=== PATIENT | female | born 1990 | race Caucasian/White ===

== ENCOUNTER 2021-05-29 13:48 | Inpatient (IN) | payer MEDICAID, SELFPAY ==
[2021-05-29 13:48] VITALS: BP 105/84; PULSE 130; RESP 18; TEMP 36.2; O2SAT 100; BMI 18.5
--- NOTE | 2021-05-29 14:11 | EDS_ITS ---
HPI History of Present Illness Chief Complaint: Substance Abuse Informant: patient Narrative Narrative: Patient presents requesting help with detox. She has been working with [employer] and states that she is supposed to go there after she is discharged from the hospital. She has been using fentanyl, heroin, and cocaine. She reports increased use the last 3 weeks and typically smokes. She states she will occasionally snort drugs. Last use was at noon yesterday. Patient states that she feels shaky and nauseated. She feels very warm. She does report some mild cough with some wheezing. No fever or chills. Patient did go through detox less than 6 months ago at another facility. [facility] Medical History Asthma Kidney stone Allergy/AdvReac Type Severity Reaction Status Date / Time amoxicillin Allergy Hives Verified 05/29/21 13:51 morphine Allergy Other Verified 05/29/21 13:51 Social History (Updated 05/29/21 @ 14:[address] Val Trammell MD) Smoking Status: Current every day smoker tobacco type: cigarettes alcohol intake: current alcohol intake frequency: holidays/special occasions only substance use type: crack/cocaine, heroin and opiates ROS ROS ED Constitutional Constitutional ED: Denies chills or fever(s) Eyes Eyes: Denies change in vision ENT ENT ED: Denies rhinorrhea Cardiovascular Cardiovascular: Denies chest pain or palpitations Respiratory/Chest Respiratory/Chest: Reports cough and other Details: Wheezing ; Denies dyspnea Gastrointestinal Gastrointestinal: Reports nausea; Denies abdominal pain or vomiting Genitourinary Genitourinary ED: Denies dysuria Integumentary Reports rash Neurologic Neurologic: Denies headache(s) Allergic/Immunologic Allergic/Immunologic ED: Denies urticaria EXAM Physical Exam Const Vital Signs: 05/29/21 13:48 Temperature 97.2 F L Temperature Source Temporal Pulse Rate 130 H Respiratory Rate 18 Blood Pressure 105/84 H Blood Pressure Mean 91 Pulse Ox 100 Oxygen Delivery Method Room Air Positive well nourished and well developed General Appearance ED: well developed HEENT Reports moist mucous membranes Eyes PERRL and EOMs intact bilaterally Neck supple Chest Wall inspection of chest normal and palpation of chest normal Resp normal respiratory effort Auscultation: wheezes throughout Cardio Rate: tachycardic GI soft to palpation and non-tender Neuro oriented x3 Sensorium / Orientation: alert Skin Skin Narrative: Scattered scabbed lesions noted on the abdomen and left upper extremity along with the chin. No sign of secondary infection. MDM MDM MDM Narrative Medical decision making narrative: Patient agreed to rules of addiction medicine program. Lab work obtained. Patient given small dose of Ativan to help with anxiety as well as albuterol MDI. Lab Data Attestation: I reviewed the patient's lab results. Labs: Laboratory Results - last 24 hr 05/29/21 05/29/21 05/29/21 14:25 14:25 14:25 WBC 6.2 RBC 4.85 Hgb 14.4 Hct 44.7 MCV 92.2 MCH 29.7 MCHC 32.2 RDW Std Deviation 43.5 RDW Coeff of Satish 12.9 Plt Count 480 H MPV 8.9 Immature Gran % (Auto) 0.200 Neut % (Auto) 71.3 H Lymph % (Auto) 19.5 Nicholas % (Auto) 6.5 Eos % (Auto) 1.5 Baso % (Auto) 1.0 Absolute Neuts (auto) 4.4 Absolute Lymphs (auto) 1.20 Nucleated RBC % 0 Sodium 140 Potassium 4.1 Chloride 109 H Carbon Dioxide 27.0 Anion Gap 4 L BUN 11 Creatinine 0.71 Estim Creat Clear Calc 79.36 Est GFR (MDRD) Af Amer 125 Est GFR (MDRD) Non-Af 103 BUN/Creatinine Ratio 15.5 Glucose 137 H Calcium 9.1 Total Bilirubin 0.20 AST 17 ALT 22 Alkaline Phosphatase 88 Total Protein 7.6 Albumin 3.4 Globulin 4.2 Albumin/Globulin Ratio 0.8 L Serum , Qual Ethyl Alcohol < 3.0 05/29/21 14:25 WBC RBC Hgb Hct MCV MCH MCHC RDW Std Deviation RDW Coeff of Satish Plt Count MPV Immature Gran % (Auto) Neut % (Auto) Lymph % (Auto) Nicholas % (Auto) Eos % (Auto) Baso % (Auto) Absolute Neuts (auto) Absolute Lymphs (auto) Nucleated RBC % Sodium Potassium Chloride Carbon Dioxide Anion Gap BUN Creatinine Estim Creat Clear Calc Est GFR (MDRD) Af Amer Est GFR (MDRD) Non-Af BUN/Creatinine Ratio Glucose Calcium Total Bilirubin AST ALT Alkaline Phosphatase Total Protein Albumin Globulin Albumin/Globulin Ratio Serum , Qual NEGATIVE Ethyl Alcohol Treatment and Re-Evaluation Comments:: Patient's labs largely unremarkable. Alcohol level negative. Tox screen still pending but will speak with hospitalist regarding admission. Covid test negative. Discharge Plan Triage Chief Complaint: Substance Abuse ED Provider: Val Trammell Dx/Rx/DC Orders Clinical Impression: Desire for detoxification Referrals: LADY AMES [Other] Disposition Disposition: Acute Care Hospital [facility]
[2021-05-29 14:33] LABS: Absolute Neutrophil Count 4.4 X10^3/uL (2.0-7.7); Basophil# 0.06 X10^3/uL; Eosinophil# 0.09 X10^3/uL; Eosinophils% 1.5 % (0-5); Hematocrit 44.7 % (37-47); Hemoglobin 14.4 g/dL (12.0-15.0); Lymphocyte % 19.5 % (19-41); Mean Corp Hgb Conc 32.2 g/dL (32-36); Mean Corpuscular Hgb 29.7 pg (27.0-32.0); Mean Corpuscular Volume 92.2 fL (81-99); Mean Platelet Vol. 8.9 fl (6.2-12.0); Monocyte% 6.5 % (0-10); NRBC Flagged by Analyzer 0 % (0-5); Neutrophil # 4.39 X10^3/uL (2.7-7.7); Neutrophil % 71.3 % (47-70); Platelet Count 480 K/mm3 (150-450); RBC Distribution Width CV 12.9 % (11.6-14.6); RBC Distribution Width SD 43.5 fl (35.1-43.9); Red Blood Count 4.85 M/mm3 (4.2-5.4); White Blood Count 6.2 K/mm3 (4.4-11.0)
[2021-05-29 14:44] LABS: Internal QC Validated? YES +Cl - CLEAR BKGD; Pregnancy, Serum, hCG Quali. NEGATIVE Negative
[2021-05-29] MEDS: LORazepam 2 MG/ML Syringe 0.5 MG IV (14:45)
[2021-05-29 14:52] LABS: ALB/GLOB Ratio 0.8 RATIO (0.9-2.4); AST(SGOT) 17 U/L (15-37); Alanine Aminotransfer ALT/SGPT 22 U/L (13-56); Albumin, Serum 3.4 g/dL (3.2-5.0); Alkaline Phosphatase 88 U/L (45-117); Anion Gap 4 (5-15); BUN 11 mg/dL (7-18); BUN/Creat Ratio 15.5 RATIO (10-20); Calcium,Total 9.1 mg/dL (8.5-10.1); Chloride 109 mmol/L (98-107); Creatinine, Serum 0.71 mg/dL (0.55-1.02); EST Glomerular Filtration Rate 103 mL/min (>60); Est Glom Filt Rate - Afr Amer 125 mL/min (>60); Estimated Creatinine Clearance 79.36 ml/min; Globulin 4.2 g/dL (2.2-4.2); Glucose 137 mg/dL (74-106); Potassium 4.1 mmol/L (3.5-5.1); Protein, Total 7.6 g/dL (6.4-8.2); Sodium Level 140 mmol/L (136-145)
[2021-05-29 15:03] LABS: Alcohol, Blood (Medical)-Serum < 3.0 mg/dL
--- NOTE | 2021-05-29 15:24 | ED.RN ---
REVIEWED CONTRACT WITH PT. VERBALIZES UNDERSTANDING AND SIGNED AGREEMENT. PT REPORTS ATIVAN EFFECTIVE.
--- NOTE | 2021-05-29 15:32 | HP.PCM.HOS_ITS ---
HPI - General General Date of Admission: 05/29/21 HPI Narrative REGINO GIFFORD, is a 30 F who presents with a complaint of acute opioid withdrawal. She has been working with [employer] and was sent in for acute opioid withdrawal. She has been using fentanyl, heroin and cocaine. She has been using heavily in the last 3 weeks prior to admission, and usually smokes heroin and fentanyl as well as cocaine, with occasional snorting. Last use was noon on the day before admission. She admitted to feeling shaky and nauseated also. Patient was very jittery and anxious during my review. She sais she had been through detox previously ~ 6 months ago. REview of systems ws otherwise negative . Vitals were BP of 105/84, IA of 130, RR of 18 and temp of 97.2F. CBC was significant for platelets of 480 and chemistry was unremarkable. She is being admitted to be managed for acute opioid withdrawal. [facility] Medical History Asthma Kidney stone Allergy/AdvReac Type Severity Reaction Status Date / Time amoxicillin Allergy Hives Verified 05/29/21 13:51 morphine Allergy Other Verified 05/29/21 13:51 Social History (Updated 05/29/21 @ 14:[address] Val Trammell MD) Smoking Status: Current every day smoker tobacco type: cigarettes alcohol intake: current alcohol intake frequency: holidays/special occasions only substance use type: crack/cocaine, heroin and opiates ROS Constitutional Constitutional: Denies anorexia, chills, fatigue, fever(s), malaise or weakness Eyes Eyes: Denies change in vision ENT HEENT: Denies headache(s) or hearing loss Cardiovascular Cardiovascular: Reports rapid heart rate; Denies chest pain, dyspnea on exertion, edema, lightheadedness, orthopnea or palpitations Respiratory/Chest Respiratory/Chest: Reports cough, dyspnea, shortness of breath at rest and shortness of breath with exertion; Denies hemoptysis or productive cough Gastrointestinal Gastrointestinal: Denies abdominal pain, constipation or diarrhea Musculoskeletal Musculoskeletal: Denies arthralgias Neurologic Neurologic: Denies confusion Psychiatric Psychiatric: Denies anxiety or depression Endocrine Endocrinology: Denies change in body appearance Hematologic/Lymphatic Hematologic/Lymphatic: Denies anemia Vital Signs Vital Signs Vital Signs: 05/29/21 13:48 Temperature 97.2 F L Temperature Source Temporal Pulse Rate 130 H Respiratory Rate 18 Blood Pressure 105/84 H Blood Pressure Mean 91 Pulse Ox 100 Oxygen Delivery Method Room Air Weight Weight: 94 lb 12.78 oz Body Mass Index (BMI) 18.5 Physical Exam Const alert and oriented x3 Constitutional Narrative: very anxious and jittery. General Appearance: cooperative HEENT normocephalic, head/scalp atraumatic, hearing grossly normal bilaterally and moist oral mucous membranes Eyes PERRL, EOMs intact bilaterally and conjunctivae normal Neck no lymphadenopathy Resp Resp Narrative: diminished breath sounds bibasally, no wheezes or crackles. On room air Cardio regular rhythm, S1 normal heart sound, S2 normal heart sound and no murmurs Cardio Narrative: tachycardic GI normal to inspection, nondistended, normoactive bowel sounds, soft to palpation, non-tender and non-distended Extremity normal to inspection, full ROM and no clubbing, cyanosis or edema Peripheral Pulses: Yes pulses 2+ throughout Skin no rashes or lesions noted Neuro oriented x3, CN's II-XII intact bilaterally and moves all extremities Sensorium / Orientation: awake and alert Psych Psych Narrative: patient very anxious, restless Results Lab / Micro Data Result Diagrams: 05/29/21 14:25 05/29/21 14:25 Labs: Laboratory Results - last 24 hr 05/29/21 14:25: WBC 6.2, RBC 4.85, Hgb 14.4, Hct 44.7, MCV 92.2, MCH 29.7, MCHC 32.2, RDW Std Deviation 43.5, RDW Coeff of Satish 12.9, Plt Count 480 H, MPV 8.9, Immature Gran % (Auto) 0.200, Neut % (Auto) 71.3 H, Lymph % (Auto) 19.5, [place] % (Auto) 6.5, Eos % (Auto) 1.5, Baso % (Auto) 1.0, Absolute Neuts (auto) 4.4, Absolute Lymphs (auto) 1.20, Nucleated RBC % 0 05/29/21 14:25: Sodium 140, Potassium 4.1, Chloride 109 H, Carbon Dioxide 27.0, Anion Gap 4 L, BUN 11, Creatinine 0.71, Estim Creat Clear Calc 79.36, Est GFR (MDRD) Af Amer 125, Est GFR (MDRD) Non-Af 103, BUN/Creatinine Ratio 15.5, Glucose 137 H, Calcium 9.1, Total Bilirubin 0.20, AST 17, ALT 22, Alkaline Phosphatase 88, Total Protein 7.6, Albumin 3.4, Globulin 4.2, Albumin/Globulin Ratio 0.8 L 05/29/21 14:25: Ethyl Alcohol < 3.0 05/29/21 14:25: Serum , Qual NEGATIVE 05/29/21 15:17: Ur Drug Screen Comment Micro: Microbiology 05/29/21 14:25 Nasal Secretion SARS-CoV-2 Antigen (Rapid) - Final Assessment & Plan Assessment/Plan (1) Opioid withdrawal: PLAN: #Acute opioid withdrawal * admit to med surg with telemetry, o/a of tachycardia * start on opioid withdrawal protocol with buprenorphine * monitor COWS score * adjunctive meds for symptomatic treatment * #Sinus tachycardia * likely due to withdrawal from opioids * will monitor for now. I expected to improve once she is started on opioid withdrawal protocol with buprenorphine and receives adjunctive medications for symptomatic relief. * DVT prophylaxis: low risk. Encourage ambulation. Charges/Coding Visit Charges Inpatient E&M: 87036 Init Hosp L3
[2021-05-29 16:00] VITALS: BMI 18.5
[2021-05-29 16:01] LABS: Amphetamine Urine VISTA NEGATIVE (<1000 ng/mL); Barbiturate Urine VISTA NEGATIVE (< 200 ng/mL); Benzodiazepine Urine VISTA NEGATIVE (< 200 ng/mL); Cocaine Urine VISTA POSITIVE (< 300 ng/mL); Ecstacy Urine VISTA NEGATIVE (< 500 ng/mL); Methadone Urine VISTA NEGATIVE (< 300 ng/mL); PCP Urine VISTA NEGATIVE (< 25 ng/mL); THC Urine VISTA POSITIVE (< 50 ng/mL); Vista UDS pH Range 7
[2021-05-29 16:02] VITALS: BP 120/78; PULSE 74; RESP 14; TEMP 36.1; O2SAT 98
[2021-05-29 16:14] VITALS: BP 112/70; PULSE 109; RESP 18; TEMP 36.6; O2SAT 100
--- NOTE | 2021-05-29 16:26 | CM.ED ---
SOCIAL WORK Reason for Consult: Substance Abuse-requesting detox Patient reported use of fentanyl, heroin, and cocaine. Last use was yesterday, 05/28/21 at noon. Patient reported already connected with [facility]. Flor, Addiction Therapist notified of admission. Plan: DAHLIA Han, HEAD INSULATION BOARD SAW OPERATOR, BOX BLANK MACHINE OPERATOR
[2021-05-29] MEDS: Gabapentin 300 MG Capsule PO (16:40)
[2021-05-29] MEDS: Buprenorphine HCl 2 MG TAB.SUBL SL ×2 (16:40→23:57)
[2021-05-29] MEDS: Dicyclomine 10 MG Capsule 20 MG PO (16:40)
[2021-05-29 17:45] VITALS: BP 111/61; PULSE 89; RESP 18; TEMP 36.6; O2SAT 96
[2021-05-29] MEDS: cloNIDine HCl 0.1 MG Tablet PO (19:40)
[2021-05-29] MEDS: hydrOXYzine PAM 25 MG Capsule 50 MG PO (19:40)
[2021-05-29] MEDS: Methocarbamol 750 MG Tablet 1500 MG PO (19:44)
[2021-05-29 19:47] VITALS: BP 104/67; PULSE 89; RESP 15; TEMP 37.1; O2SAT 99
[2021-05-29 19:49] VITALS: RESP 15
[2021-05-29] MEDS: traZODone 100 MG Tablet PO (23:57)
[2021-05-30 00:01] VITALS: BP 87/32; PULSE 60; RESP 14; TEMP 36.7; O2SAT 99
[2021-05-30 03:47] VITALS: BP 104/62; PULSE 56; RESP 15; TEMP 36.8; O2SAT 95
[2021-05-30] MEDS: Buprenorphine HCl 2 MG TAB.SUBL SL ×2 (07:38→15:49)
[2021-05-30] MEDS: Methocarbamol 750 MG Tablet 1500 MG PO ×2 (07:42→17:19)
[2021-05-30 07:45] VITALS: BP 95/62; PULSE 69; RESP 15; TEMP 36.7; O2SAT 96
--- NOTE | 2021-05-30 10:00 | PCS.PANDOC ---
PANDEMIC DOCUMENTATION INITIATED: Date: 03/08/2021 Time: 190
--- NOTE | 2021-05-30 10:41 | ADDICTION ---
TW met with patient to complete ASAM, AUDIT, DUDIT, MSE, and DAWNA. Patient reported using 1/2g to 1g of fentanyl daily through smoking. Pt reported already being in contact with [facility] but is unsure who she spoke with. Pt stated she wants to admit to residential directly from detox. TW had pt sign DAWNA for [facility] and will inquire about the possbility of a bed-to-bed transfer. Once that plan is identified/set, transportation will be arranged and TW will fill out discharge plan.
[2021-05-30] MEDS: hydrOXYzine PAM 25 MG Capsule 50 MG PO ×2 (11:52→19:50)
--- NOTE | 2021-05-30 12:16 | PN.HOSP_ITS ---
Subjective Subjective Patient seen and examined. She had no active complaints. Patient however remains restless and irritable. Review of systems otherwise negative. Tachycardia has resolved, and she has otherwise remained hemodynamically stable. Objective Data Objective Data Vital Signs: Vital Signs Temp Pulse Resp BP Pulse Ox 98.1 F 69 15 95/62 96 05/30/21 07:45 05/30/21 07:45 05/30/21 07:45 05/30/21 07:45 05/30/21 07:45 Oxygen Delivery Method Room Air Weight: 94 lb 12.78 oz Body Mass Index (BMI) 18.5 Intake & Output: Intake and Output for Last 24 Hours 05/28/21 05/29/21 05/30/21 23:59 23:59 22:59 Intake Total 600 / 600 Balance 600 / 600 Lab / Micro Data Result Diagrams: 05/29/21 14:25 05/29/21 14:25 Labs: Laboratory Results - last 24 hr 05/29/21 14:25: WBC 6.2, RBC 4.85, Hgb 14.4, Hct 44.7, MCV 92.2, MCH 29.7, MCHC 32.2, RDW Std Deviation 43.5, RDW Coeff of Satish 12.9, Plt Count 480 H, MPV 8.9, Immature Gran % (Auto) 0.200, Neut % (Auto) 71.3 H, Lymph % (Auto) 19.5, [place] % (Auto) 6.5, Eos % (Auto) 1.5, Baso % (Auto) 1.0, Absolute Neuts (auto) 4.4, Absolute Lymphs (auto) 1.20, Nucleated RBC % 0 05/29/21 14:25: Sodium 140, Potassium 4.1, Chloride 109 H, Carbon Dioxide 27.0, Anion Gap 4 L, BUN 11, Creatinine 0.71, Estim Creat Clear Calc 79.36, Est GFR (MDRD) Af Amer 125, Est GFR (MDRD) Non-Af 103, BUN/Creatinine Ratio 15.5, Glucose 137 H, Calcium 9.1, Total Bilirubin 0.20, AST 17, ALT 22, Alkaline Phosphatase 88, Total Protein 7.6, Albumin 3.4, Globulin 4.2, Albumin/Globulin Ratio 0.8 L 05/29/21 14:25: Ethyl Alcohol < 3.0 05/29/21 14:25: Serum , Qual NEGATIVE 05/29/21 15:17: Urine Opiates Screen NEGATIVE, Urine Methadone Screen NEGATIVE, Ur Barbiturates Screen NEGATIVE, Ur Phencyclidine Scrn NEGATIVE, Ur Amphetamines Screen NEGATIVE, U Methamphetamin-MDMA NEGATIVE, U Benzodiazepines Scrn NEGATIVE, Urine Cocaine Screen POSITIVE H, U Cannabinoids Screen POSITIVE H, Ur Drug Screen Comment Micro: Microbiology 05/29/21 14:25 Nasal Secretion SARS-CoV-2 Antigen (Rapid) - Final Physical Exam Const alert and oriented x3 Constitutional Narrative: anxious and restless General Appearance: cooperative Exam Limitations: no limitations HEENT normocephalic, head/scalp atraumatic, hearing grossly normal bilaterally and moist oral mucous membranes Head and Scalp: normocephalic Eyes PERRL, EOMs intact bilaterally and conjunctivae normal Neck no lymphadenopathy Resp Resp Narrative: diminished breath sounds bibasally, no wheezes or crackles. On room air Cardio regular rhythm, S1 normal heart sound, S2 normal heart sound and no murmurs Cardio Narrative: tachycardic GI normal to inspection, nondistended, normoactive bowel sounds, soft to palpation, non-tender and non-distended Extremity normal to inspection, full ROM and no clubbing, cyanosis or edema Peripheral Pulses: Yes pulses 2+ throughout Skin no rashes or lesions noted Neuro oriented x3, CN's II-XII intact bilaterally and moves all extremities Sensorium / Orientation: awake and alert Psych affect normal Psych Narrative: patient restless, jittery Assessment & Plan Assessment/Plan (1) Opioid withdrawal: PLAN: #Acute opioid withdrawal * on opioid withdrawal protocol with buprenorphine * monitor COWS score * adjunctive meds for symptomatic treatment * #Sinus tachycardia * likely due to withdrawal from opioids * resolved. * DVT prophylaxis: low risk. Encourage ambulation. Disposition: for DC to [facility] once acute detox is complete Charges/Coding Visit Charges Inpatient E&M: 81237 Subs Hosp L2
[2021-05-30 13:45] VITALS: BP 95/57; PULSE 84; RESP 14; TEMP 36.9; O2SAT 97
[2021-05-30] MEDS: Gabapentin 300 MG Capsule PO (17:19)
--- NOTE | 2021-05-30 17:21 | NURSING ---
patient stated I feel hot and restless and have muscle spasms and anxious PRN Neurontin and methocarbamol given, will cont to monitor.
[2021-05-30 19:43] VITALS: BP 102/54; PULSE 68; RESP 18; TEMP 36.8; O2SAT 97
[2021-05-30] MEDS: traZODone 100 MG Tablet PO (19:50)
[2021-05-31] MEDS: Buprenorphine HCl 2 MG TAB.SUBL SL ×3 (00:29→17:00)
[2021-05-31] MEDS: Gabapentin 300 MG Capsule PO ×2 (02:15→12:13)
[2021-05-31] MEDS: Methocarbamol 750 MG Tablet 1500 MG PO ×3 (02:15→15:00)
[2021-05-31 02:23] VITALS: BP 106/66; PULSE 57; RESP 17; TEMP 36.9; O2SAT 97
[2021-05-31 09:00] VITALS: BP 110/91; PULSE 68; RESP 16; TEMP 36.9; O2SAT 97
[2021-05-31] MEDS: hydrOXYzine PAM 25 MG Capsule 50 MG PO ×2 (10:32→17:00)
--- NOTE | 2021-05-31 10:49 | ADDICTION ---
TW met with pt to provide supportive counseling and update of plan. TW informed PT she will be transported tomorrow morning, 06/01/2021 at 9AM to [facility]'s residential treatment center ([facility] by Kirill pitching coach. Pt complained of intense anxiety and feeling restless. TW provided word searches to help keep busy and informed attending nurse of anxiety and wanting nicotine gum.
[2021-05-31] MEDS: Nicotine Polacrilex 2 MG GUM PO ×3 (12:52→21:25)
[2021-05-31 14:59] VITALS: BP 101/69; PULSE 106; RESP 18; TEMP 36.8; O2SAT 98
--- NOTE | 2021-05-31 16:03 | PN.HOSP_ITS ---
Subjective Subjective Patient states overall she is feeling fairly well and not having any significant withdrawal symptoms. 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 She denies any use of methamphetamines and her talk screen is negative however we did discuss that she may have opiates that have been cut with other substances that are contributing to her anxiety and picking disorder. She also admits to tobacco abuse and the desire for nicotine gum. He has intolerance to patches. Objective Data Objective Data Vital Signs: Vital Signs Temp Pulse Resp BP Pulse Ox 98.3 F 106 H 18 101/69 98 05/31/21 14:59 05/31/21 14:59 05/31/21 14:59 05/31/21 14:59 05/31/21 14:59 Oxygen Delivery Method Room Air Weight: 43 kg Body Mass Index (BMI) 18.5 Intake & Output: Intake and Output for Last 24 Hours 05/30/21 05/30/21 05/31/21 00:59 23:59 23:59 Intake Total 850 / 850 Balance 850 / 850 Lab / Micro Data Result Diagrams: 05/29/21 14:25 05/29/21 14:25 Micro: Microbiology 05/29/21 14:25 Nasal Secretion SARS-CoV-2 Antigen (Rapid) - Final Physical Exam Const alert, oriented x3 and no apparent distress Constitutional Narrative: Thin young white female sitting up in bed, watching television, appears comfortable but slightly anxious Exam Limitations: no limitations Nutritional Appearance: thin HEENT head/scalp atraumatic and moist oral mucous membranes Head and Scalp: normocephalic Resp normal respiratory effort, no retractions and no use of accessory muscles Resp Narrative: Few scattered wheezes that clear with cough Auscultation: wheezes; Negative for crackles, rales or rhonchi Cardio regular rate, regular rhythm, S1 normal heart sound, S2 normal heart sound, no murmurs, no rub, no gallops, no clicks and no JVD GI normal to inspection, nondistended, normoactive bowel sounds, soft to palpation, non-tender and non-distended Extremity no clubbing, cyanosis or edema Peripheral Pulses: Yes pulses 2+ throughout Skin Skin Narrative: Multiple wounds all over her body with no signs of infection and consistent with picking disorder Neuro oriented x3, moves all extremities and no focal motor deficits Sensorium / Orientation: awake and alert Psych Psych Narrative: Appears anxious but affect is normal and eye contact is good Assessment & Plan Assessment/Plan (1) Desire for detoxification: (2) Opioid withdrawal: (3) Tobacco abuse: (4) Anxiety: PLAN: Acute opiate withdrawal -Continue buprenorphine taper -Continue supportive medications -Patient has been seen by addiction medicine and plan is for discharge to residential treatment tomorrow at 9 AM Tobacco abuse -Start nicotine gum -Recommend cessation Anxiety -Patient states that she was on treatment for anxiety in the past but had brandi ance issues -Recommend outpatient psychiatry follow-up -Anticipate she will get some treatment with regards to this at residential treatment -Patient states Vistaril is helping her at this time DVT prophylaxis -Early ambulation protocol
[2021-05-31 21:18] VITALS: BP 125/67; PULSE 83; RESP 15; TEMP 37.2; O2SAT 97
[2021-06-01] MEDS: Buprenorphine HCl 2 MG TAB.SUBL SL (03:51)
[2021-06-01] MEDS: hydrOXYzine PAM 25 MG Capsule 50 MG PO (03:51)
[2021-06-01 03:52] VITALS: BP 100/58; PULSE 63; RESP 15; TEMP 36.6; O2SAT 98
[2021-06-01 06:21] LABS: Absolute Lymphocyte Count 2.76 X10^3/uL (0.83-4.51); Absolute Neutrophil Count 2.9 X10^3/uL (2.0-7.7); Basophil# 0.05 X10^3/uL; Basophil% 0.8 % (0-1); Eosinophil# 0.22 X10^3/uL; Eosinophils% 3.3 % (0-5); Hematocrit 45.1 % (37-47); Hemoglobin 14.8 g/dL (12.0-15.0); Lymphocyte # 2.76 X10^3/ul (0.83-4.51); Lymphocyte % 41.9 % (19-41); Mean Corp Hgb Conc 32.8 g/dL (32-36); Mean Corpuscular Hgb 30.2 pg (27.0-32.0); Mean Platelet Vol. 9.2 fl (6.2-12.0); Monocyte# 0.66 X10^3/uL; NRBC Flagged by Analyzer 0 % (0-5); Neutrophil # 2.89 X10^3/uL (2.7-7.7); Neutrophil % 43.8 % (47-70); Platelet Count 447 K/mm3 (150-450); RBC Distribution Width SD 43.7 fl (35.1-43.9); White Blood Count 6.6 K/mm3 (4.4-11.0)
[2021-06-01 06:46] LABS: Anion Gap 6 (5-15); BUN 17 mg/dL (7-18); BUN/Creat Ratio 24.1 RATIO (10-20); Calcium,Total 9.2 mg/dL (8.5-10.1); Chloride 107 mmol/L (98-107); Creatinine, Serum 0.71 mg/dL (0.55-1.02); EST Glomerular Filtration Rate 104 mL/min (>60); Est Glom Filt Rate - Afr Amer 126 mL/min (>60); Estimated Creatinine Clearance 79.36 ml/min; Glucose 99 mg/dL (74-106); Potassium 4.6 mmol/L (3.5-5.1); Sodium Level 139 mmol/L (136-145)
--- NOTE | 2021-06-01 07:24 | PCM.DC.SUM ---
Providers Date of Admission: 05/29/21 Primary Care Physician: LADY AMES Reason For Visit: ACUTE OPIOID WITHDRAWAL Diagnosis Discharge Diagnosis (1) Desire for detoxification: Status: Acute (2) Opioid withdrawal: Status: Acute Code(s): F11.23 - Opioid dependence with withdrawal (3) Tobacco abuse: Status: Acute Code(s): Z72.0 - Tobacco use (4) Anxiety: Status: Acute Code(s): F41.9 - Anxiety disorder, unspecified Hospital Course Operations None Procedures None Summary of Care Provided Minutes Spent on Discharge: 26 Hospital Course: Analia Saleh is a 30-year-old female who presented to the emergency department [facility] on 05/29/2021 for acute opiate withdrawal. She reported on admission she had been working with [employer] and was sent in to the hospital for acute opiate withdrawal. She has a history of fentanyl, heroin, and cocaine use. She reported on admission that she had been using heavily the last 3 weeks prior to admission and had usually been smoking or snorting heroin and fentanyl as well as cocaine. Her last use was noon the day prior to admission. On admission she was complained of feeling shaky and nauseated. She had been through detox previously 6 months prior to admission. Her lab work was unremarkable on admission and she was admitted to the general medical floor for opiate detox. Toxicology screen was positive for cocaine and THC on admission. She was placed on a buprenorphine taper as well as supportive medication for symptoms. She was seen by addiction medicine and scheduled for discharge to residential facility on 06/01/2021 at 9 AM. During her stay she complained of nicotine cravings for which she was placed on nicotine gum. She stated the patches made her jittery and she preferred the gum. She also complained of anxiety which was a baseline problem for her and was noted to have significant picking issues although had no sites of infection and all sites of picking seem to be healing well. She was discharged to residential treatment on 06/01/2021 in stable condition. Charge diagnoses: Acute opiate withdrawal Tobacco abuse Anxiety Polysubstance abuse Physical Exam Const alert Constitutional Narrative: Thin young white female sitting up in bed, watching television, appears comfortable but slightly anxious General Appearance: cooperative, comfortable, well kempt and well developed Orientation / Consciousness: awake Exam Limitations: no limitations Nutritional Appearance: thin HEENT normocephalic, head/scalp atraumatic, hearing grossly normal bilaterally and moist oral mucous membranes Resp normal respiratory effort, no retractions and no use of accessory muscles Resp Narrative: Few scattered wheezes that clear with cough Auscultation: wheezes; Negative for crackles, rales or rhonchi Cardio regular rate, regular rhythm, S1 normal heart sound, S2 normal heart sound, no murmurs, no rub, no gallops, no clicks and no JVD GI normal to inspection, nondistended, normoactive bowel sounds, soft to palpation, non-tender and non-distended Extremity normal to inspection, full ROM and no clubbing, cyanosis or edema Skin no rashes or lesions noted Skin Narrative: Multiple wounds all over her body with no signs of infection and consistent with picking disorder Neuro oriented x3, CN's II-XII intact bilaterally, moves all extremities and no focal motor deficits Sensorium / Orientation: awake and alert Psych affect normal Psych Narrative: Appears anxious but affect is normal and eye contact is good Weight / BMI Weight Weight: 43 kg Body Mass Index (BMI) 18.5 ABG / Lab / Microbiology Data Result Diagrams: 06/01/21 05:24 06/01/21 05:24 Laboratory: Laboratory Results - last 24 hr 06/01/21 05:24: WBC 6.6, RBC 4.90, Hgb 14.8, Hct 45.1, MCV 92.0, MCH 30.2, MCHC 32.8, RDW Std Deviation 43.7, RDW Coeff of Satish 13.0, Plt Count 447, MPV 9.2, Immature Gran % (Auto) 0.200, Neut % (Auto) 43.8 L, Lymph % (Auto) 41.9 H, [place] % (Auto) 10.0, Eos % (Auto) 3.3, Baso % (Auto) 0.8, Absolute Neuts (auto) 2.9, Absolute Lymphs (auto) 2.76, Nucleated RBC % 0 06/01/21 05:24: Sodium 139, Potassium 4.6, Chloride 107, Carbon Dioxide 26.0, Anion Gap 6, BUN 17, Creatinine 0.71, Estim Creat Clear Calc 79.36, Est GFR (MDRD) Af Amer 126, Est GFR (MDRD) Non-Af 104, BUN/Creatinine Ratio 24.1 H, Glucose 99, Calcium 9.2 Microbiology: Microbiology 11/06/21 14:25 Nasal Secretion SARS-CoV-2 Antigen (Rapid) - Final D/C Instructions Discharge Diet: No restrictions Discharge Activity: Return to Normal Activity Meaningful Use Info Meaningful Use Diagnoses (Choose all that apply): None applicable Discharge Plan Admission Admit Date/Time: 05/29/21 15:52 Primary Reason for Your Visit: Acute opiate withdrawal Attending Provider: Maame Huynh Discharge Orders/Prescriptions Referrals / Follow Up: LADY AMES [Other] LADY AMES [Other] Disposition Disposition (needs filled in before D/C Order can be placed): Home, Self Care Charges/Coding Visit Charges Inpatient E&M: 75961 Disch Hosp
[2021-06-01] MEDS: Gabapentin 300 MG Capsule PO (07:58)
[2021-06-01 08:01] VITALS: BP 101/70; PULSE 64; RESP 16; TEMP 36.9; O2SAT 99
== END 2021-06-01 09:15 | disposition home or self-care (01) | DRG 773 ==
LOC: ED 15:09 → MS3 15:54
PROVIDERS: Nurse Practitioner Family; Admitting Provider Student in an Organized Health Care Education/Training Program; Emergency Provider Emergency Medicine; Visit Provider Internal Medicine
DX: F11.23 Opioid dependence with withdrawal (principal); R00.0 Tachycardia, unspecified; J45.909 Unspecified asthma, uncomplicated; F17.210 Nicotine dependence, cigarettes, uncomplicated; Z87.442 Personal history of urinary calculi; F41.9 Anxiety disorder, unspecified; Z88.0 Allergy status to penicillin; Z88.5 Allergy status to narcotic agent; F19.10 Other psychoactive substance abuse, uncomplicated
CPT/HCPCS: 36415; 80048; 80053; 80307; 82077; 84703; 85025; 87426; 99284; 99406

== ENCOUNTER 2022-03-17 18:24 | Inpatient (IN) | payer MEDICAID, SELFPAY ==
[2022-03-17 18:25] VITALS: BP 142/124; PULSE 124; RESP 24; TEMP 36.6; O2SAT 98; BMI 19.5
--- NOTE | 2022-03-17 19:09 | EX.ED.DYSGE1 ---
HPI History of Present Illness Chief Complaint: Substance Abuse Detail of Chief Complaint: Snorts fentanyl and smokes crack cocaine Informant: patient and parent Onset/Context/Timing Onset: - (Problem with addiction for years) Context: Gradual Onset Timing: Continuous Quality: Has not snorted fentanyl in 48 hours Location: Complains of withdrawal symptoms Current Severity: Moderate Maximum Severity: Moderate Worsened by: Abstinence Relieved by: Nothing Associated Symptoms Associated Symptoms: Fidgety, nausea, cramps, fatigue Narrative Narrative: Patient is a 31-year-old who admits to snorting 1/2 g to 2 g of fentanyl a day. She also smokes crack cocaine occasionally. She was in a detox program May last year. She states she was seen at [facility]. She has been seen at [facility]. She states she resumed using couple months after she left. Mother disagreed. Patient presently does not have a job. When asked how she affords the drugs she states she earns money. 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 She denies stealing. She does have history of hepatitis C. She has not been tested for HIV. Prior similar symptoms: Yes Recent Illness/Hospitalization: No [facility] Medical History Anxiety and depression Asthma Hepatitis C History of nephrolithiasis Polysubstance abuse Substance abuse Tobacco abuse Home Medications NK 03/17/22 [History Last Taken Unknown] Allergy/AdvReac Type Severity Reaction Status Date / Time amoxicillin Allergy Hives Verified 03/17/22 18:28 morphine Allergy Other Verified 03/17/22 18:28 Family History Father Alcohol abuse Diabetes Surgical History History of bilateral tubal ligation History of ureter stent Hx of lithotripsy Surgical History no surgical history no surgical history Social History household members: other details: Currently living with her mother in [place]. Smoking Status: Current every day smoker tobacco type: cigarettes Smoking packs per day: 0.5 Smoking cigarettes per day: 10.0 alcohol intake: current alcohol intake frequency: holidays/special occasions only substance use type: crack/cocaine, heroin, opiates and other details: Currently primarily snorting cocaine/crack and snorting also fentanyl. ROS ROS ED Constitutional Constitutional ED: Reports sweats; Denies chills, fever(s), subjective or weight loss Eyes Eyes: Denies blurry vision, change in vision or diplopia ENT ENT ED: Denies ear pain, rhinorrhea or sore throat Cardiovascular Cardiovascular: Reports palpitations and racing heartbeat; Denies chest pain, orthopnea or paroxysmal nocturnal dyspnea Respiratory/Chest Respiratory/Chest: Reports dyspnea; Denies cough, dyspnea on exertion, orthopnea or paroxysmal nocturnal dyspnea Gastrointestinal Gastrointestinal: Reports abdominal pain and nausea; Denies constipation, melena or vomiting Genitourinary Genitourinary ED: Denies dysuria, hematuria or urinary frequency Musculoskeletal Musculoskeletal: Reports myalgias; Denies arthralgias, back pain or neck pain Integumentary Reports rash; Denies abscess or Abrasions Neurologic Neurologic: Denies headache(s), paresthesias or weakness Psychiatric Psychiatric: Reports anxiety and depression; Denies suicidal ideation Hematologic/Lymphatic Hematologic/Lymphatic: Reports systems reviewed and no addt'l complaints, except as documented; Denies anemia, easy bleeding or easy bruising Allergic/Immunologic Allergic/Immunologic ED: Denies mouth swelling, tongue swelling or urticaria EXAM Physical Exam Const Vital Signs: 03/17/22 18:25 Temperature 97.9 F Temperature Source Temporal Pulse Rate 124 H Respiratory Rate 24 H Blood Pressure 142/124 H Blood Pressure Mean 130 Pulse Ox 98 Oxygen Delivery Method Room Air Positive well developed Constitutional Narrative: Patient is thin. Patient is hyperactive and fidgety. Patient appears anxious. General Appearance ED: well developed; Negative for cyanotic, diaphoretic, NAD or pallor HEENT Reports moist mucous membranes HEENT Narrative: Head is atraumatic normocephalic. Ears normal. Nares patent. No septal deviation. Posterior pharynx out erythema or exudate. Uvula midline. Eyes PERRL and EOMs intact bilaterally Eyes Narrative: There is no nystagmus. General Eye ED: Negative for pale conjunctiva or scleral icterus Neck no lymphadenopathy, supple and no JVD Neck Narrative: Trachea is midline. 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 General Extremety ED: Negative for edema or tenderness General Extremity: Negative for edema Neuro oriented x3, CN's II-XII intact bilaterally and no sensory deficits noted Sensorium / Orientation: alert Motor Exam: strength 5/5 throughout Psych Psych Narrative: Patient is anxious and fidgety. Speech is slightly pressured. Skin No no wounds and skin turgor normal Skin Narrative: Evidence of machine operator picker syndrome General Skin Exam: Negative for jaundice or pallor MDM MDM MDM Narrative Medical decision making narrative: Patient presents with withdrawal from opiates. She also has addiction to crack cocaine. There is history hepatitis C. Spoke with hospitalist. Patient to be admitted to [facility] if test is negative. test is positive she will require transfer. Lab Data Attestation: I reviewed the patient's lab results. Rhythm Strip Rhythm Strip: Sinus Tach Rate: 125 Ectopy: None Discharge Plan Dx/Rx/DC Orders Clinical Impression: Opiate withdrawal, Crack cocaine use, History of hepatitis C, Sinus tachycardia Disposition Disposition: Acute Care Hospital [facility] Discharge Date/Time: 03/17/22 20:31
--- NOTE | 2022-03-17 19:12 | HP.PCM.HOS_ITS ---
HPI - General General Date of Admission: 03/17/22 Date of Service: 03/17/22 Chief Complaint: Acute Opiate Withdrawal HPI Narrative The patient is a 31 y/o F w/ PMHx: Asthma, Tobacco use, Hx Nephrolithiasis, Anxiety and Depression, Polysubstance abuse (Crack/cocaine intermittently, fentanyl 1/2-2 gm snorted), Hepatitis C who presents to the [facility] ED on 03/17/22 w/ noted acute opiate withdrawal onset early on the day of presentation following last dose of fentanyl and cocaine in the early AM the day prior with nausea without emesis,abdominal cramping, body aches, notable restlessness and increased agitation, fatigue, sweating reporting recurrent interest in attaining clean status. She notes her boyfriend with whom she has used is in [place] and she is attempting to leave him. She denies prostitution for payment of her drugs. She notes interest in potentially residental treatment. She notes her drug usage has been only in [place]. Last evaluation for opiate withdrawal and treatment noted 05/29/21-06/01/21. Work-u in the ED included T 97.9, heart rate 124, BP 142/124, respiratory rate 24, and 8% on room air, pending UDS, ethyl alcohol level, serum testing, CBC and CMP upon requested evaluation of patient. In the ED patient ministered Zofran and low-dose 0.5 mg Ativan x1. [facility] Medical History Anxiety and depression Asthma Hepatitis C History of nephrolithiasis Polysubstance abuse Substance abuse Tobacco abuse Home Medications NK 03/17/22 [History Last Taken Unknown] Allergy/AdvReac Type Severity Reaction Status Date / Time amoxicillin Allergy Hives Verified 03/17/22 18:28 morphine Allergy Other Verified 03/17/22 18:28 Family History Father Alcohol abuse Diabetes other (No marked medical history in her mother, denies DM, CA, HTN, Drug abuse, Anxiety/Depression history.) Surgical History History of bilateral tubal ligation History of ureter stent Hx of lithotripsy Surgical History no surgical history Social History household members: other details: Currently living with her mother in [place]. Smoking Status: Current every day smoker tobacco type: cigarettes Smoking packs per day: 0.5 Smoking cigarettes per day: 10.0 alcohol intake: current alcohol intake frequency: holidays/special occasions only substance use type: crack/cocaine, heroin, opiates and other details: Currently primarily snorting cocaine/crack and snorting also fentanyl. ROS ROS Narrative Admission Review of Systems: CONSTITUTIONAL: No weight loss, fever, chills, + weakness or fatigue. HEENT: Eyes: No visual loss, blurred vision, double vision or yellow sclerae. Ears, Nose, Throat: No hearing loss, sneezing, congestion, runny nose or sore throat. SKIN: No rash or itching, lesions, wounds. CARDIOVASCULAR: No chest pain, chest pressure or chest discomfort, palpitations, edema, orthopnea, syncopal events. RESPIRATORY: No shortness of breath, cough or sputum, wheezing, hemoptysis. GASTROINTESTINAL: + anorexia, nausea, abdominal cramping, No vomiting, diarrhea, melena, BRBPR. GENITOURINARY: No dysuria, frequency, urgency or retention. NEUROLOGICAL: + Restlessness/agitation. No headache, dizziness, syncope, paralysis, ataxia, numbness or tingling in the extremities, focal weakness, change in bowel or bladder control, seizure. MUSCULOSKELETAL: + muscle, back pain, joint pain or stiffness. HEMATOLOGIC: No anemia, bleeding or bruising. LYMPHATICS: No enlarged nodes. No history of splenectomy. PSYCHIATRIC: + history of depression or anxiety. ENDOCRINOLOGIC: + reports of sweating. No cold or heat intolerance. No polyuria or polydipsia. ALLERGIES: + history of asthma. Vital Signs Vital Signs Vital Signs: 03/17/22 18:25 Temperature 97.9 F Temperature Source Temporal Pulse Rate 124 H Respiratory Rate 24 H Blood Pressure 142/124 H Blood Pressure Mean 130 Pulse Ox 98 Oxygen Delivery Method Room Air Weight Weight: 100 lb Body Mass Index (BMI) 19.5 Physical Exam Narrative Physical Examination: General: Awake, alert, oriented x 3 and cooperative, seated upright in the ED bed, extremely restless, mildly agitated, evident notable withdrawal. Skin: Normal color, normal turgor, no icterus, no cyanosis except occasional abrasion, scab. HEENT: AT/NC, EOMI, PERRLA, dry MM, no carotid bruits or JVD noted. Lungs: Diminished, greater bases, appropriate effort, no rales, ronchi or wheezing. Heart: Tachycardic with regular rhythm; no gallop, rub audible. Abdomen: Soft, mild generalized discomfort with palpation but no rebound or guarding ND, hyperactive BS, no HSM. Extremities: No cyanosis, clubbing, or edema. Neurological: Patient awake, alert, oriented as noted, cognitive function intact; pupils equally reactive to light and accommodation, cranial nerves II- XII grossly normal, moving all 4 extremities, no focal deficits, strength mildly to moderately decreased secondary to acute presentation complaints, significantly restless, agitated Psychiatric: Affect appears restless, agitated, no acute evidence of depressive or anxiety feelings but does have underlying history. Assessment & Plan Assessment/Plan (1) Opiate withdrawal: PLAN: Plan The patient is a 31 y/o F w/ PMHx: Asthma, Tobacco use, Hx Nephrolithiasis, Anxiety and Depression, Polysubstance abuse (Crack/cocaine intermittently, fentanyl 1/2-2 gm snorted), Hepatitis C who presents to the [facility] ED on 03/17/22 w/ noted acute opiate withdrawal onset early on the day of presentation following last dose of fentanyl and cocaine in the early AM the day prior with nausea without emesis,abdominal cramping, body aches, notable restlessness and increased agitation, fatigue, sweating reporting recurrent interest in attaining clean status. #1. Acute Opiate Withdrawal: Will admit to [facility], routine labs including CBC, CMP, urine for drug screen obtained in the ED and pending upon evaluation. Discussed with the ED and if testing is negative will transition to medical surgical floor and will initiate and continue on protocol with tapering course of Subutex, as needed tylenol, ibuprofen, bowel regimen, gabapentin, Bentyl, Vistaril, methocarbamol, clonidine, PRN nightly trazodone for insomnia, IV fluids, IV antiemetics. Once patient clinically improved and completion of taper nearing will plan consultation with case management for transition to next level of rehabilitation care. #2. Polysubstance Abuse w/ Hepatitis C history: Given history to be thorough will obtain HIV and hepatitis panel for co-infection evaluation. Also, [place] discussion and denies prostitution but reports likely her boyfriend was with other partners and amenable to GC/Chl testing also. Patient currently not candidate for hep C treatment currently as needs to be clean, sober x 6 months, documented attendance NA or AA meetings, counseling and ongoing negative drug screens. Encouraged PCP establishment and follow-up. #3. Elevated BP without hypertensive diagnosis: Likely secondary to acute withdrawal, continue to closely monitor and if remains elevated despite improvement in symptoms and withdrawal treatment may need to initiate oral regimen, as needed IV hydralazine in interim. #4. Anxiety and Depression: Not on regimen, likely contributes greatly to her substance abuse, stronly encouraged counseling with [facility] program. #5. Tobacco Abuse: Encouraged cessation, inpatient consultation per RT, NR if desired. #6. Chronic Asthma: Encouraged tobacco cessation, not on any routine inhalers, will have PRN albuterol. #7. DVT prophylaxis: Low risk, encourage ambulation. Charges/Coding Visit Charges Inpatient E&M: 96262 Init Hosp L3
[2022-03-17 19:19] VITALS: BP 128/87; PULSE 115; RESP 16; TEMP 36.6; O2SAT 99
[2022-03-17 19:31] VITALS: BP 128/87; PULSE 115; RESP 16; O2SAT 99
[2022-03-17] MEDS: LORazepam 2 MG/ML Syringe 0.5 MG IV (19:35)
[2022-03-17] MEDS: Ondansetron 4 MG/2 ML Vial IV (19:35)
[2022-03-17 19:48] LABS: Absolute Lymphocyte Count 2.05 X10^3/uL (0.83-4.51); Absolute Neutrophil Count 6.5 X10^3/uL (2.0-7.7); Basophil# 0.05 X10^3/uL; Basophil% 0.5 % (0-1); Eosinophil# 0.03 X10^3/uL; Eosinophils% 0.3 % (0-5); Hematocrit 42.2 % (37-47); Hemoglobin 14.5 g/dL (12.0-15.0); Lymphocyte # 2.05 X10^3/ul (0.83-4.51); Lymphocyte % 21.8 % (19-41); Mean Corp Hgb Conc 34.4 g/dL (32-36); Mean Corpuscular Hgb 30.3 pg (27.0-32.0); Mean Corpuscular Volume 88.1 fL (81-99); Monocyte# 0.77 X10^3/uL; Monocyte% 8.2 % (0-10); NRBC Flagged by Analyzer 0 % (0-5); Neutrophil # 6.49 X10^3/uL (2.7-7.7); Platelet Count 392 K/mm3 (150-450); RBC Distribution Width CV 12.2 % (11.6-14.6); RBC Distribution Width SD 39.8 fl (35.1-43.9); Red Blood Count 4.79 M/mm3 (4.2-5.4); White Blood Count 9.4 K/mm3 (4.4-11.0)
[2022-03-17 20:10] LABS: Alcohol, Blood (Medical)-Serum < 3.0 mg/dL; Internal QC Validated? YES +Cl - CLEAR BKGD; Pregnancy, Serum, hCG Quali. NEGATIVE Negative
[2022-03-17 20:12] LABS: Amphetamine Urine VISTA NEGATIVE (<1000 ng/mL); Barbiturate Urine VISTA NEGATIVE (< 200 ng/mL); Benzodiazepine Urine VISTA NEGATIVE (< 200 ng/mL); Cocaine Urine VISTA POSITIVE (< 300 ng/mL); Ecstacy Urine VISTA NEGATIVE (< 500 ng/mL); Methadone Urine VISTA NEGATIVE (< 300 ng/mL); PCP Urine VISTA NEGATIVE (< 25 ng/mL); THC Urine VISTA POSITIVE (< 50 ng/mL); Vista UDS pH Range 6
[2022-03-17 20:17] LABS: AST(SGOT) 16 U/L (15-37); Alanine Aminotransfer ALT/SGPT 25 U/L (13-56); Albumin, Serum 3.9 g/dL (3.2-5.0); Alkaline Phosphatase 77 U/L (45-117); Anion Gap 7 (5-15); BUN 16 mg/dL (7-18); BUN/Creat Ratio 21.7 RATIO (10-20); Calcium,Total 9.6 mg/dL (8.5-10.1); Chloride 108 mmol/L (98-107); Creatinine, Serum 0.74 mg/dL (0.55-1.02); EST Glomerular Filtration Rate 98 mL/min (>60); Est Glom Filt Rate - Afr Amer 119 mL/min (>60); Globulin 3.8 g/dL (2.2-4.2); Glucose 121 mg/dL (74-106); Potassium 3.5 mmol/L (3.5-5.1); Protein, Total 7.7 g/dL (6.4-8.2); Sodium Level 141 mmol/L (136-145)
[2022-03-17 20:29] VITALS: BMI 19.0
[2022-03-17 20:30] VITALS: BP 128/87; PULSE 115; RESP 16; TEMP 36.6; O2SAT 99
[2022-03-17 20:42] VITALS: BP 115/74; PULSE 75; RESP 16; TEMP 37.2; O2SAT 99
[2022-03-17 20:43] LABS: HIV - WCH Non-Reactive (Nonreactive)
[2022-03-17] MEDS: Lactated Ringers 1,000 ML 125 ML IV (20:46)
[2022-03-17] MEDS: 0.9% Saline Lock 10 ML Syringe IV (20:46)
[2022-03-17] MEDS: hydrOXYzine PAM 25 MG Capsule 50 MG PO (21:00)
[2022-03-17] MEDS: traZODone 100 MG Tablet PO (21:00)
[2022-03-17] MEDS: Methocarbamol 750 MG Tablet 1500 MG PO (21:00)
[2022-03-17] MEDS: Buprenorphine HCl 2 MG TAB.SUBL SL (21:00)
[2022-03-17 21:57] LABS: Chlamydia Trachomatis by PCR Negative (Negative); Neisserai gonorrhoeae by PCR Negative (Negative); Probe Check PASS; Sample Adequacy Control PASS; Specimen Processing Control PASS
[2022-03-18 04:43] VITALS: BP 107/60; PULSE 76; RESP 16; TEMP 36.9; O2SAT 97
[2022-03-18] MEDS: Gabapentin 300 MG Capsule PO ×2 (04:51→13:24)
[2022-03-18] MEDS: Dicyclomine 10 MG Capsule 20 MG PO ×3 (04:51→19:39)
[2022-03-18] MEDS: hydrOXYzine PAM 25 MG Capsule 50 MG PO ×3 (04:51→19:39)
[2022-03-18] MEDS: Buprenorphine HCl 2 MG TAB.SUBL SL ×3 (04:51→19:41)
[2022-03-18] MEDS: Ondansetron 8 MG Tablet PO ×2 (04:51→13:24)
[2022-03-18] MEDS: Methocarbamol 750 MG Tablet 1500 MG PO ×3 (04:51→19:39)
[2022-03-18 07:45] VITALS: O2SAT 96
[2022-03-18 08:48] VITALS: BP 120/76; PULSE 74; RESP 18; TEMP 38.3; O2SAT 99
[2022-03-18] MEDS: cloNIDine HCl 0.1 MG Tablet PO (08:51)
[2022-03-18] MEDS: Ibuprofen 600 MG Tablet PO (08:51)
[2022-03-18] MEDS: Nicotine Polacrilex 2 MG GUM PO (09:27)
[2022-03-18 14:00] VITALS: BP 102/62; PULSE 71; RESP 17; TEMP 36.9; O2SAT 99
--- NOTE | 2022-03-18 14:06 | PCM.PN.HOSP ---
Subjective Subjective Patient reports she is having significant withdrawal symptoms including nausea, myalgias, anxiety but no emesis. Subutex was started last evening. She also had a fever this morning but this appears to be an isolated event. She denies ever injecting IV drugs and has no cutaneous infections. She denies any shortness of breath or dysuria. Objective Data Objective Data Vital Signs: Vital Signs Temp Pulse Resp BP Pulse Ox O2 Del Method 98.5 F 71 17 102/62 99 Room Air 03/18/22 14:00 03/18/22 14:00 03/18/22 14:00 03/18/22 14:00 03/18/22 14:00 03/18/22 14:00 Oxygen Delivery Method Room Air Weight: 44.1 kg Body Mass Index (BMI) 19.0 Intake & Output: Intake and Output for Last 24 Hours 03/16/22 03/17/22 03/18/22 23:59 23:59 23:59 Intake Total 1000 / 1000 Balance 1000 / 1000 Lab / Micro Data Result Diagrams: 03/17/22 19:40 03/17/22 19:40 Labs: Laboratory Results - last 24 hr 03/17/22 19:38: Urine Opiates Screen NEGATIVE, Urine Methadone Screen NEGATIVE, Ur Barbiturates Screen NEGATIVE, Ur Phencyclidine Scrn NEGATIVE, Ur Amphetamines Screen NEGATIVE, MDMA (Ecstasy) Screen NEGATIVE, U Benzodiazepines Scrn NEGATIVE, Urine Cocaine Screen POSITIVE H, U Cannabinoids Screen POSITIVE H, Ur Drug Screen Comment 03/17/22 19:38: Chlam trachomat DNA PCR Negative, N.gonorrhoeae DNA (PCR) Negative 03/17/22 19:40: WBC 9.4, RBC 4.79, Hgb 14.5, Hct 42.2, MCV 88.1, MCH 30.3, MCHC 34.4, RDW Std Deviation 39.8, RDW Coeff of Satish 12.2, Plt Count 392, MPV 9.0, Immature Gran % (Auto) 0.200, Neut % (Auto) 69.0, Lymph % (Auto) 21.8, [place] % (Auto) 8.2, Eos % (Auto) 0.3, Baso % (Auto) 0.5, Absolute Neuts (auto) 6.5, Absolute Lymphs (auto) 2.05, Nucleated RBC % 0 03/17/22 19:40: Serum , Qual NEGATIVE 03/17/22 19:40: Sodium 141, Potassium 3.5, Chloride 108 H, Carbon Dioxide 26.0, Anion Gap 7, BUN 16, Creatinine 0.74, Estim Creat Clear Calc 79.60, Est GFR (MDRD) Af Amer 119, Est GFR (MDRD) Non-Af 98, BUN/Creatinine Ratio 21.7 H, Glucose 121 H, Calcium 9.6, Total Bilirubin 0.60, AST 16, ALT 25, Alkaline Phosphatase 77, Total Protein 7.7, Albumin 3.9, Globulin 3.8, Albumin/Globulin Ratio 1.0 03/17/22 19:40: Ethyl Alcohol < 3.0 03/17/22 19:40: HIV 1&2 Antibody Non-Reactive Rhythm Strip Rhythm Strip: Sinus Tach Rate: 125 Ectopy: None Physical Exam Const alert, oriented x3 and no apparent distress Constitutional Narrative: Anxious, thin, middle-aged white female who appears older than stated age, sitting up in bed, appears comfortable nontoxic HEENT head/scalp atraumatic, moist oral mucous membranes and oropharynx normal HEENT Narrative: Dentition is poor, Mallampati is 2, no thrush Resp normal respiratory effort, no retractions, no use of accessory muscles and clear to auscultation bilaterally Resp Narrative: Diminished but clear Auscultation: Negative for crackles, rales, rhonchi or wheezes Cardio regular rate, regular rhythm, S1 normal heart sound, S2 normal heart sound, no murmurs, no rub, no gallops, no clicks and no JVD GI normal to inspection, nondistended, normoactive bowel sounds, soft to palpation and non-tender Extremity no clubbing, cyanosis or edema Extremity Narrative: 2+ pedal pulses Neuro oriented x3, moves all extremities and no focal motor deficits Speech: speech normal Assessment & Plan Assessment/Plan (1) Opiate withdrawal: (2) Fever: (3) Anxiety: PLAN: Plan Acute opiate withdrawal -Was admitted to inpatient residential treatment in 2020 and stayed for 2 days -Currently snorts 1/2 to 2 g of fentanyl daily -Also admits to cocaine use -Last use was early on the morning of admission -Continue Subutex taper -Continue supportive medications -180 consultation -Patient currently indicating she would like to retry residential treatment at discharge Fever -Patient had a isolated fever at 101 -UA and COVID-19 testing performed--> both are pending at this time -Patient is otherwise asymptomatic -Continue to follow trend -Hold on empiric antibiotics at this time Anxiety -Patient states she has a history of bipolar 1 disorder however does not follow with a psychiatrist and is currently on no medications -We will start BuSpar for anxiety -Strongly encourage patient to follow-up with psychiatry as an outpatient History of hepatitis C -Would recommend follow-up with GI for consideration of treatment after patient is sober Tobacco abuse -Start nicotine gum -Recommend cessation DVT prophylaxis -Low risk -Early ambulation protocol Charges/Coding Visit Charges Inpatient E&M: 40819 Subs Hosp L2
--- NOTE | 2022-03-18 16:20 | ADDICTION ---
This typewriter tester met with PT to conduct ASAM, MSE, AUDIT assessments and to plan for d/c. PT A+Ox4 and participated actively. All assessments completed and placed in PT's chart. PT plans to f/u with [facility] for inpatient treatment services.She is scheduled for admission on Monday. [facility] will provide transportation.
[2022-03-18 16:27] LABS: Mucous, Urine 0 SEEN /hpf (<or=2+); Red Blood Cells-Urine 0 SEEN /hpf (0-5)
[2022-03-18] MEDS: busPIRone 5 MG Tablet 10 MG PO ×2 (16:27→19:42)
[2022-03-18 16:28] LABS: Color, Urine Yellow (Yellow); Glucose, Dipstick Normal (Normal); Ketone-Dipstick 5 mg/dl (Negative); Leukocyte Esterase-Dipstick 25 /ul (Negative); Nitrite-Dipstick Negative (Negative); Occult Blood-Urine Negative /ul (Negative); Protein-Dipstick 15 mg/dl (Negative); Urine Clarity Clear (Clear); Urine Urobilinogen 1 mg/dl (Normal)
[2022-03-18 16:38] LABS: Urine Bilirubin Dipstick 1 mg/dL (Negative)
[2022-03-18 16:43] LABS: Bacteria 1+ /hpf (None Seen); Squamous Epithelial Cells - UA 5-10 SEEN /hpf (5-10); White Blood Cells 0-5 SEEN /hpf (0-5)
[2022-03-18] MEDS: traZODone 100 MG Tablet PO (19:39)
[2022-03-18 19:51] VITALS: BP 100/62; PULSE 74; RESP 16; TEMP 37.1; O2SAT 100
--- NOTE | 2022-03-18 22:58 | NURSING ---
went to check on pt, pt left ama without telling any staff. broke her tote open and took her personal belongings. patternmaker metal, nursing supervisor communications and signals and dr osuna notified.
--- NOTE | 2022-03-18 23:10 | PCM.HOSP.N ---
Hospitalist Note Patient left AMA, did not notify staff, last evaluation per staff was 03/18/22 21:30.
--- NOTE | 2022-03-19 06:50 | PCM.HOSP.N ---
Hospitalist Note Patient elected to sign out AGAINST MEDICAL ADVICE last evening. She was informed that she may return to the hospital if she desires for detox or further care.
== END 2022-03-18 23:14 | disposition left against medical advice (07) | DRG 770 ==
LOC: ED 19:24 → MS3 19:34
PROVIDERS: Admitting Provider Family Medicine; Emergency Provider Emergency Medicine; Visit Provider Internal Medicine
DX: F11.23 Opioid dependence with withdrawal (principal); F14.10 Cocaine abuse, uncomplicated; J45.909 Unspecified asthma, uncomplicated; F41.9 Anxiety disorder, unspecified; F17.210 Nicotine dependence, cigarettes, uncomplicated; R03.0 Elevated blood-pressure reading, without diagnosis of hypertension; R50.9 Fever, unspecified; Z86.19 Personal history of other infectious and parasitic diseases; F32.A Depression, unspecified
CPT/HCPCS: 80053; 80307; 81001; 82077; 84703; 85025; 86703; 86704; 86705; 86706; 86707; 86803; 87340; 87350; 87426; 87491; 87591; 99284; 99406; J7120; A4216; J2405